=== PATIENT | female | born 1950 | race Caucasian/White ===

== ENCOUNTER 2019-05-21 13:25 | Emergency (ER) | payer MEDICARE, OTHER ==
--- NOTE | 2019-05-21 15:33 | CT ---
Head CT Technique: Multiple axial sections through the brain were obtained. Intravenous contrast was not utilized. Comparison: No prior intracranial imaging. Findings: Ventricles along with basal cisterns and sulci over the convexities are mildly prominent. Minimal diminished density is noted within portions of the periventricular white matter which is compatible with small vessel ischemic demyelination change. No other abnormal parenchymal densities are seen. No evidence of intracranial hemorrhage. No midline shift or mass effect is seen. Mastoid sinuses and visualized paranasal sinuses show nothing acute. No acute calvarial abnormality is appreciated. Impression: 1. Mild senescent change. 2. Nothing acute is seen on noncontrast head CT study. Diagnostic code #2 Study was dictated in [place] Standard Time
--- NOTE | 2019-05-21 17:03 | CR ---
Cervical spine: AP, lateral and odontoid views of the cervical spine were obtained. Comparison: No prior cervical spine imaging is available. Fairly severe disc space narrowing is noted at C5-6 with slight posterior ridging. Mild disc space narrowing at C6-7 and C7-T1. Anterior osteophytes are noted at C5-6. Minimal spondylolisthesis is noted at C4-5. Scattered degenerative apophyseal change is noted. Scoliosis is noted. Mild degenerative uncovertebral change is seen throughout the cervical spine. No fracture or acute subluxation is seen. Impression: 1. Degenerative change and scoliosis. 2. Nothing acute is appreciated. Diagnostic code #2 This report was dictated in [place] Standard Time
--- NOTE | 2019-05-21 17:27 | EDM.PDOC ---
ED HPI GENERAL MEDICAL PROBLEM - General Chief Complaint: Upper Extremity Injury/Pain Stated Complaint: FALL AT HOME Time Seen by Provider: 05/21/19 13:50 Source of Information: Reports: Patient History Limitations: Reports: No Limitations - History of Present Illness INITIAL COMMENTS - FREE TEXT/NARRATIVE: Patient is a 69 -year-old female who presents with complain of neck, bilateral elbows, and bilateral knee pain after falling in the shower today. Patient lives with her son who help to get up, however she did lie on the floor for one half to 2 hours. Patient had knee replacements done back in 2018 and did have a short rehabilitation status senior care facility followed by some physical therapy. She reports that she has been experiencing more frequent falls over the last week as she feels increasingly weak. She was diagnosed with a urinary tract infection by her student ministry pastor Dr. Roche last week and has been taking Bactrim for that. She's has a couple doses left she states. Denies any respiratory symptoms, fever, chills, nausea, vomiting, or diarrhea. Bilateral Knee Pain Score (Numeric/FACES): 4 - Related Data Allergies Allergy/AdvReac Type Severity Reaction Status Date / Time erythromycin base Allergy Vomiting Verified 05/21/19 13:36 morphine Allergy Rash Verified 05/21/19 13:36 tetracycline Allergy Rash Verified 05/21/19 13:36 Home Meds: Home Meds Amitriptyline HCl 100 mg PO DAILY 05/21/19 [History] Aspirin 81 mg PO DAILY 05/21/19 [History] Atenolol [Tenormin] 50 mg PO DAILY 05/21/19 [History] Cranberry 1 tab PO DAILY 05/21/19 [History] DULoxetine [Cymbalta] 30 mg PO DAILY 05/21/19 [History] FLUoxetine HCl [Fluoxetine] 20 mg PO DAILY 05/21/19 [History] Fenofibrate Nanocrystallized [Fenofibrate] 145 mg PO DAILY 05/21/19 [History] Insulin Degludec [Tresiba] 36 units SUBCUT DAILY 05/21/19 [History] Levothyroxine [Synthroid] 100 mcg PO DAILY 05/21/19 [History] Multivit with Calcium,Iron,Min [Essential Daily] 1 tab PO DAILY 05/21/19 [ History] Sentinel-3/DHA/Epa/Fish Oil [Fish Oil 500 MG Softgel] 300 mg PO DAILY 05/21/19 [ History] Simvastatin 40 mg PO DAILY 05/21/19 [History] Sulfamethoxazole/Trimethoprim [Bactrim Ds Tablet] 1 tab PO BID 05/21/19 [History ] Vit A/C/E/Zinc/Selenium/Copper [Vision Formula Tablet] 1 tab PO DAILY 05/21/19 [ History] Past Medical History Cardiovascular History: Reports: Heart Murmur, Hypertension Genitourinary History: Reports: UTI, Recurrent [employer] History: Reports: Musculoskeletal History: Reports: Fibromyalgia Endocrine/Metabolic History: Reports: Diabetes, Type II, Hypothyroidism - Past Surgical History GI Surgical History: Reports: Appendectomy, Cholecystectomy Musculoskeletal Surgical History: Reports: Knee Replacement Social & Family History - Family History Family Medical History: Noncontributory - Tobacco Use Smoking Status *Q: Never Smoker Second Hand Smoke Exposure: No - Caffeine Use Caffeine Use: Reports: Soda - Recreational Drug Use Recreational Drug Use: No Review of Systems - Review of Systems Review Of Systems: Comprehensive ROS is negative, except as noted in HPI. ED EXAM, GENERAL - Physical Exam Exam: See Below Exam Limited By: No Limitations General Appearance: Alert, WD/WN, No Apparent Distress Head: Atraumatic, Normocephalic, Other (midoccipital tenderness to palpation) Neck: Normal Inspection, Supple, Full Range of Motion, Tender Lateral (right). No: Tender Midline Respiratory/Chest: No Respiratory Distress, Lungs Clear, Normal Breath Sounds, No Accessory Muscle Use, Chest Non-Tender Cardiovascular: Normal Peripheral Pulses, Regular Rate, Rhythm, No Edema, No Gallop, No JVD, No Murmur, No Rub GI/Abdominal: Normal Bowel Sounds, Soft, Non-Tender, No Organomegaly, No Distention, No Abnormal Bruit, No Mass Extremities: Other (patient ecchymosis to bilateral elbows. Full range of motion to both extremities without difficulty. Full range of motion with no bruising or deformity noted to bilateral knees. ) Neurological: Alert, Oriented, CN II-XII Intact, Normal Cognition, Normal Gait, Normal Reflexes, No Motor/Sensory Deficits Psychiatric: Normal Affect, Normal Mood Skin Exam: Warm, Dry, Intact, No Rash Course - Vital Signs Last Recorded V/S: Last Vital Signs Temp 95.8 F 05/21/19 13:32 Pulse 87 05/21/19 13:32 Resp 16 05/21/19 13:32 BP 152/91 H 05/21/19 13:32 Pulse Ox 98 05/21/19 13:32 - Orders/Labs/Meds Orders: Active Orders 24 hr Category Date Time Status Influenza Vaccine Charge [RC] .DISCHARGE Care 05/21/19 13:50 Active Knee 1V or 2V Lt [CR] Stat Exams 05/21/19 14:43 Taken Knee 1V or 2V Rt [CR] Stat Exams 05/21/19 14:43 Taken Labs: Laboratory Tests 05/21/19 05/21/19 05/21/19 Range/Units 14:58 14:58 16:00 WBC 10.43 H (3.98-10.04) K/mm3 RBC 4.85 (3.98-5.22) M/mm3 Hgb 14.3 (11.2-15.7) gm/dl Hct 43.2 (34.1-44.9) % MCV 89.1 (79.4-94.8) fl MCH 29.5 (25.6-32.2) pg MCHC 33.1 (32.2-35.5) g/dl RDW Std Deviation 45.4 (36.4-46.3) fL Plt Count 294 (182-369) K/mm3 MPV 9.5 (9.4-12.3) fl Neut % (Auto) 72.7 H (34.0-71.1) % Lymph % (Auto) 17.5 L (19.3-51.7) % [place] % (Auto) 6.5 (4.7-12.5) % Eos % (Auto) 2.0 (0.7-5.8) Baso % (Auto) 0.8 (0.1-1.2) % Neut # (Auto) 7.58 H (1.56-6.13) K/mm3 Lymph # (Auto) 1.83 (1.18-3.74) K/mm3 [place] # (Auto) 0.68 H (0.24-0.36) K/mm3 Eos # (Auto) 0.21 (0.04-0.36) K/mm3 Baso # (Auto) 0.08 (0.01-0.08) K/mm3 Manual Slide Review Normal smear Sodium 136 (136-145) mEq/L Potassium 4.6 (3.5-5.1) mEq/L Chloride 102 (98-107) mEq/L Carbon Dioxide 23 (21-32) mEq/L Anion Gap 15.6 H (5-15) BUN 33 H (7-18) mg/dL Creatinine 2.1 H (0.55-1.02) mg/dL Est Cr Clr Drug Dosing 21.50 mL/min Estimated GFR (MDRD) 23 (>60) mL/min BUN/Creatinine Ratio 15.7 (14-18) Glucose 114 (80-115) mg/dL Calcium 8.9 (8.5-10.1) mg/dL Total Bilirubin 0.3 (0.2-1.0) mg/dL AST 23 (15-37) U/L ALT 32 (14-59) U/L Alkaline Phosphatase 25 L (46-116) U/L Total Protein 7.3 (6.4-8.2) g/dl Albumin 3.5 (3.4-5.0) g/dl Globulin 3.8 gm/dL Albumin/Globulin Ratio 0.9 L (1-2) Urine Color Yellow (Yellow) Urine Appearance Clear (Clear) Urine pH 7.0 (5.0-8.0) Ur Specific [place] 1.020 (1.005-1.030) Urine Protein Negative (Negative) Urine Glucose (UA) Negative (Negative) Urine Ketones Negative (Negative) Urine Occult Blood Negative (Negative) Urine Nitrite Negative (Negative) Urine Bilirubin Negative (Negative) Urine Urobilinogen 0.2 (0.2-1.0) Ur Leukocyte Esterase Trace H (Negative) Urine RBC 0-5 (0-5) /hpf Urine WBC 0-5 (0-5) /hpf Ur Epithelial Cells 0-5 (0-5) /hpf Urine Bacteria Not seen (FEW) /hpf Urine Mucus Not seen (FEW) /hpf Meds: Medications Discontinued Medications Generic Name Dose Route Start Last Admin Trade Name Freq PRN Reason Stop Dose Admin Influenza Virus Vaccine 180 mcg 05/21/19 14:00 Fluzone High-Dose 2018- Syringe IM 05/21/19 14:01 .ONCE ONE - Re-Assessments/Exams Free Text/Narrative Re-Assessment/Exam: 05/21/19 17:29 Hematology was significant for a mildly elevated white count at 10.43. Anion gap 15.6, BUN 33, creatinine 2.1. Patient does have chronic renal disease and generally is about 2 for her creatinine. Her urinalysis was positive for trace leukocyte esterase, however there was no bacteria or WBCs present. CT of head showed no acute abnormalities and x-rays showed only degenerative changes. Discussed these findings with the patient and her son. I recommended that she increase her fluid intake and did discuss that urinary tract infections can oftentimes cause increased weakness. I recommended that she continue to take her Bactrim as prescribed as her URI tract infection has mostly resolved. I did recommend that she call to schedule appointment with her primary care provider, Binta Solano, to discuss the difficulty she's been having at home. The son feels that she would benefit from some additional physical therapy and I tend to agree with him as she appears to be becoming more deconditioned. Discharge instructions as noted. Departure - Departure Time of Disposition: 17:29 Disposition: Home, Self-Care 01 Condition: Fair Clinical Impression: Fall Qualifiers: Encounter type: initial encounter Qualified Code(s): W19.XXXA - Unspecified fall, initial encounter - Discharge Information *PRESCRIPTION DRUG MONITORING PROGRAM REVIEWED*: No *COPY OF PRESCRIPTION DRUG MONITORING REPORT IN PATIENT KENDAL: No Referrals: Kari Solano NP [Primary Care Provider] - Forms: ED Department Discharge Additional Instructions: You were seen in the emergency department today for neck pain, bilateral elbow pain, and bilateral knee pain after falling at home. a CT of your head, and x- ray of your neck, and an x-ray of both your knees were done. These all came back normal. We did check a urinalysis which shows a urinary tract infection is resolving. As we discussed, your increased weakness over the last week may have been related to your urinary tract infection. Your labs did show that she were mildly dehydrated as well. I would recommend that she increase her fluid intake. It is recommended that she call to schedule a follow-up appointment with your primary care provider to discuss her increased weakness and the possibility of a referral for physical therapy. In the meantime I would recommend that you use your walker and have somebody present when you ambulate as much as possible in case you begin to feel unsteady. If you should experience any new or worsening symptoms, please do not hesitate to return to the emergency department. Sepsis Event Note - Evaluation Sepsis Screening Result: No Definite Risk - Focused Exam Vital Signs: Vital Signs Temp Pulse Resp BP Pulse Ox 05/21/19 13:32 95.8 F 87 16 152/91 H 98 Date Exam was Performed: 05/21/19 Time Exam was Performed: 17:21 - My Orders Last 24 Hours: My Active Orders 05/21/19 13:50 Influenza Vaccine Charge [RC] .DISCHARGE 05/21/19 14:43 Knee 1V or 2V Lt [CR] Stat Knee 1V or 2V Rt [CR] Stat - Assessment/Plan Last 24 Hours: My Active Orders 05/21/19 13:50 Influenza Vaccine Charge [RC] .DISCHARGE 05/21/19 14:43 Knee 1V or 2V Lt [CR] Stat Knee 1V or 2V Rt [CR] Stat
--- NOTE | 2019-05-22 06:51 | CR ---
Left knee: AP and lateral views of the left knee were obtained. Comparison: No prior left knee exam. Knee prosthesis is seen. Components are aligned. Underlying bony structures are intact. No fracture or other bony abnormality is identified. Impression: 1. Left knee prosthesis. 2. Two-view left knee exam is otherwise unremarkable. Diagnostic code #2 This report was dictated in [place] Standard Time
--- NOTE | 2019-05-22 07:38 | CR ---
Right knee: AP and lateral views of the right knee were obtained. Comparison: No previous knee exam. Knee prosthesis is noted. Components are aligned. Underlying bony structures are intact. Minimal vascular calcification is noted. Impression: 1. Knee prosthesis. Minimal vascular calcification. 2. No additional abnormality is seen on two-view right knee exam. Diagnostic code #2 This report was dictated in [place] Standard Time
== END 2019-05-21 17:45 | disposition home or self-care (01) ==
LOC: JD.ED 13:25
DX: S50.02XA Contusion of left elbow, initial encounter (principal); S50.01XA Contusion of right elbow, initial encounter; M54.2 Cervicalgia; M25.562 Pain in left knee; M25.561 Pain in right knee; E11.22 Type 2 diabetes mellitus with diabetic chronic kidney disease; I12.9 Hypertensive chronic kidney disease with stage 1 through stage 4 chronic kidney disease, or unspecified chronic kidney disease; N18.9 Chronic kidney disease, unspecified; E03.9 Hypothyroidism, unspecified; Z88.1 Allergy status to other antibiotic agents; Z88.5 Allergy status to narcotic agent; Z79.82 Long term (current) use of aspirin; Z79.899 Other long term (current) drug therapy; Z79.4 Long term (current) use of insulin; Z79.890 Hormone replacement therapy; W18.2XXA Fall in (into) shower or empty bathtub, initial encounter; Y92.002 Bathroom of unspecified non-institutional (private) residence as the place of occurrence of the external cause; Y93.89 Activity, other specified
CPT/HCPCS: 36415; 70450; 70450-26; 72040; 72040-26; 73560-26-LT; 73560-26-RT; 73560-LT; 73560-RT; 80053; 81001; 85025; 99283; 99284-25